=== PATIENT | female | born 1945 | race Caucasian/White ===

== ENCOUNTER → 2020-10-27 | Outpatient (CLI) | payer MEDICARE ==
--- NOTE | 2020-10-28 16:02 | RAD ---
EXAMINATION: MG 2D BILAT SCREENING CLINICAL HISTORY: Routine screening, history of benign biopsy on the right TECHNIQUE: Digital craniocaudal and mediolateral oblique views of the bilateral breasts obtained with additional exaggerated lateral craniocaudal view of the right breast. COMPARISON: 10/20/2019, 10/10/2018, 09/18/2017 BREAST COMPOSITION: There are scattered areas of fibroglandular density. FINDINGS: No evidence of suspicious mass, calcifications, or areas of architectural distortion. IMPRESSION: No mammographic evidence of malignancy. BI-RADS ASSESSMENT: Category 1: Negative RECOMMENDATION: Return for routine bilateral screening mammogram in one year. PQRS compliance statement - Patient information was entered into a reminder system with a target due date for the next mammogram. "Our facility is accredited by the [employer] Mammography Program." Electronically signed by: Jefferson Montenegro DO (10/28/2020 3:59 PM) [id number]
== END ==
LOC: MAMMO 10:18
PROVIDERS: ATTEND Family Medicine
DX: Z12.31 Encounter for screening mammogram for malignant neoplasm of breast (principal)
CPT/HCPCS: 77067

== ENCOUNTER → 2021-11-09 | Outpatient (CLI) | payer MEDICARE ==
--- NOTE | 2021-11-09 17:03 | RAD ---
Digital Mammogram Bilateral History: Routine screening Technique: 2-D digital CC and MLO views were obtained. CAD - computer aided detection was utilize d. Comparison: Mammograms from 10/27/2020, 10/20/2019, and 10/10/2018.. Findings: Breast Tissue Density B : There are scattered areas of fibroglandular density There are no new suspicious masses, malignant appearing calcifications, or areas of architectural dis tortion. There are small focal asymmetries in both breasts which are not definitely changed. Impression: No evidence of malignancy. Assessment: BI-RADS 2. Benign findings. Recommendation: Routine screening mammograms. The patient will receive a letter with the results in the mail. Patient information will be entered i nto the mammography reminder system with a target recall date for the next mammogram. A reminder mary er will be generated. Electronically signed by: Carlee Wei MD (11/09/2021 5:00 PM) [id number]
== END ==
LOC: MAMMO 09:31
PROVIDERS: ATTEND Family Medicine
DX: Z12.31 Encounter for screening mammogram for malignant neoplasm of breast (principal)
CPT/HCPCS: 77067

== ENCOUNTER → 2021-11-27 | Outpatient (CLI) | payer MEDICARE ==
--- NOTE | 2021-11-27 09:29 | RAD ---
EXAM: ULTRASOUND ABDOMEN COMPLETE CLINICAL HISTORY: Reason: ELEVATED LIVER ENZYMES / Spl. Instructions: / History: COMPARISON: None available. TECHNIQUE: Ultrasound of the upper abdomen was performed. FINDINGS: The visualized aorta, IVC within normal limits of dimension. Pancreas is not well-visualized due to b owel gas. The liver length measures 17.6 cm. Moderate increased echogenicity identified in the liver likely hepatic steatosis. The gallbladder is mildly distended. No evidence of gallstones. The right k idney is 9.2 x 4.8 x 4.9 cm. The left kidney measures 10.7 x 5.8 x 5.2 cm. The spleen measures 9.2 cm in length. IMPRESSION: 1. Examination limited due to bowel gas. 2. Moderate hepatic steatosis. Electronically signed by: Christophe Causey MD (11/27/2021 9:27 AM) [id number]
== END ==
LOC: US 08:37
PROVIDERS: ATTEND Family Medicine
DX: K76.0 Fatty (change of) liver, not elsewhere classified (principal); K82.8 Other specified diseases of gallbladder; R74.8 Abnormal levels of other serum enzymes
CPT/HCPCS: 76700